=== PATIENT | female | born 1960 | race Asian ===

== ENCOUNTER 2017-12-06 08:38 | Outpatient (CLI) | payer OTHER | END 2017-12-06 19:19 | disposition home or self-care (01) | LOC: US 08:38 | DX: Z12.31 Encounter for screening mammogram for malignant neoplasm of breast (principal); R10.84 Generalized abdominal pain ==

== ENCOUNTER 2018-05-21 08:17 | Outpatient (CLI) | payer OTHER | END 2018-05-21 20:27 | disposition home or self-care (01) | LOC: CT 08:17 | DX: R10.84 Generalized abdominal pain (principal) | CPT/HCPCS: 36415; 82565; 84520; Q9963 ==

== ENCOUNTER 2018-07-03 07:58 | Outpatient (CLI) | payer OTHER | END 2018-07-03 23:37 | disposition home or self-care (01) | LOC: NM 07:58 | DX: R10.13 Epigastric pain (principal) | CPT/HCPCS: A9541 ==

== ENCOUNTER 2018-07-11 08:51 | Outpatient (CLI) | payer OTHER | END 2018-07-11 22:05 | disposition home or self-care (01) | LOC: NM 08:51 | DX: R10.13 Epigastric pain (principal) | CPT/HCPCS: A9537 ==

== ENCOUNTER 2018-08-22 09:27 | Outpatient (CLI) | payer OTHER | END 2018-08-22 19:28 | disposition home or self-care (01) | LOC: RAD 09:27 | DX: Z13.820 Encounter for screening for osteoporosis (principal); Z78.0 Asymptomatic menopausal state ==

== ENCOUNTER 2019-01-21 12:55 | Outpatient (CLI) | payer OTHER | END 2019-01-21 22:54 | disposition home or self-care (01) | LOC: RAD 12:55 | DX: M79.671 Pain in right foot (principal); M25.571 Pain in right ankle and joints of right foot ==

== ENCOUNTER 2022-11-10 14:40 | Outpatient (CLI) | payer OTHER ==
[2022-11-10 14:56] LABS: PLATELET COUNT 195 K/uL (152-353)
[2022-11-10 15:07] LABS: POTASSIUM 4.3 mmol/L (3.6-5.2)
== END 2022-11-10 17:00 ==
LOC: LABW 14:40
PROVIDERS: ATTEND Nurse Practitioner Family
DX: R25.2 Cramp and spasm (principal)
CPT/HCPCS: 80053; 83735; 85027

== ENCOUNTER 2023-02-28 09:11 | Outpatient (CLI) | payer OTHER | END 2023-02-28 18:57 | disposition home or self-care (01) | LOC: MAMMO 09:11 | PROVIDERS: ATTEND Nurse Practitioner Family | DX: Z12.31 Encounter for screening mammogram for malignant neoplasm of breast (principal) ==